=== PATIENT | male | born 1965 | race Caucasian/White ===

== ENCOUNTER 2022-11-06 21:55 | Inpatient (IN) | payer BC, OTHER ==
[~2022-11-06 21:55] MED LIST: Iopamidol 370 76% 100 ML VIAL ONE
[2022-11-06 22:41] LABS: #Lymphocytes 0.5 thou/uL (1.20-3.40); #Monocytes 0.6 thou/uL (0.11-0.59); #Neutrophils 7.6 thou/uL (1.40-6.50); %Basophils 0.2 % (0.0-1.0); %Eosinophils 0.5 % (0.0-10.0); %Lymphocytes 5.4 % (21.0-51.0); %Monocytes 6.7 % (0.0-10.0); %Neutrophils 87.2 % (42.0-75.0); Hemoglobin 11.7 g/dL (14.0-18.0); Mean Corpuscular HGB CONC 32.3 g/dL (32.0-36.0); Mean Corpuscular Hemoglobin 26.4 pg (27.0-31.0); Mean Corpuscular Volume 81.9 fl (78.0-98.0); Mean Platelet Volume 8.7 fL (7.4-10.4); Platelet Count 169 10x3/uL (130-400); Red Blood Cell (RBC) Count 4.41 mill/uL (4.70-6.10); White Blood Cell (WBC) Count 8.8 10x3/uL (4.8-10.8)
[2022-11-06 23:28] LABS: ALT (SGPT) 14 U/L (8-55); AST (SGOT) 31 U/L (5-34); Albumin 4.2 g/dL (3.5-5.0); Alkaline Phosphatase 66 U/L (40-110); Anion Gap 17 mmol/L (10-20); BUN (Urea Nitrogen) 8 mg/dL (8.4-25.7); Calc. Creatinine Clearance 0 mL/min (70-130); Calcium 8.6 mg/dL (7.8-10.44); Carbon Dioxide 21 mmol/L (22-29); Chloride 99 mmol/L (98-107); Estimated GFR 102; Globulin 2.8 g/dL (2.4-3.5); Glucose 97 mg/dL (70-105); Lipase 17 U/L (8-78); Potassium 4.8 mmol/L (3.5-5.1); Sodium 132 mmol/L (136-145)
[2022-11-06 23:32] LABS: SARS-CoV-2 NAA Rapid Test DETECTED (NotDetected)
[2022-11-07] MEDS ORDERED: Aspirin 325 MG TAB ONE (00:33)
[2022-11-07 00:53] LABS: CKMB 1.9 ng/mL (0-6.6)
[2022-11-07] MEDS ORDERED: Furosemide 40 MG/4 ML VIAL ONE ×2 (00:57→15:17)
[2022-11-07] MEDS ORDERED: Ondansetron PF 4 MG/2 ML Vial IVP PRN (02:22)
[2022-11-07] MEDS ORDERED: Acetaminophen 325 MG TAB PO PRN (02:22)
[2022-11-07 02:31] LABS: Bilirubin, Total 1.3 mg/dL (0.2-1.2)
[2022-11-07 04:25] VITALS: BMI 38.7
[2022-11-07 04:50] LABS: #Lymphocytes 0.7 thou/uL (1.20-3.40); #Monocytes 0.5 thou/uL (0.11-0.59); #Neutrophils 4.5 thou/uL (1.40-6.50); %Basophils 0.3 % (0.0-1.0); %Eosinophils 0.2 % (0.0-10.0); %Lymphocytes 12.2 % (21.0-51.0); %Monocytes 8.8 % (0.0-10.0); %Neutrophils 78.4 % (42.0-75.0); Mean Corpuscular HGB CONC 33.4 g/dL (32.0-36.0); Mean Corpuscular Hemoglobin 26.9 pg (27.0-31.0); Mean Corpuscular Volume 80.6 fl (78.0-98.0); Mean Platelet Volume 8.6 fL (7.4-10.4); Platelet Count 161 10x3/uL (130-400); White Blood Cell (WBC) Count 5.8 10x3/uL (4.8-10.8)
[2022-11-07 05:05] LABS: Anion Gap 15 mmol/L (10-20); BUN (Urea Nitrogen) 9 mg/dL (8.4-25.7); Calc. Creatinine Clearance 208 mL/min (70-130); Calcium 8.5 mg/dL (7.8-10.44); Carbon Dioxide 23 mmol/L (22-29); Chloride 102 mmol/L (98-107); Estimated GFR 106; Glucose 84 mg/dL (70-105); Potassium 3.9 mmol/L (3.5-5.1); Sodium 136 mmol/L (136-145)
[2022-11-07 05:13] LABS: Troponin I 0.062 ng/mL (< 0.028)
[2022-11-07] MEDS: Furosemide 20 MG/2 ML VIAL SLOW IVP SCH ×2 (06:28→15:47)
[2022-11-07 08:39] LABS: Troponin I 0.069 ng/mL (< 0.028)
[2022-11-07] MEDS: Ascorbic Acid 500 mg Chewable Tablet PO SCH (08:44)
[2022-11-07] MEDS: Zinc Sulfate 220 MG CAP PO SCH (08:45)
[2022-11-07] MEDS ORDERED: FLU VACC QS2022-23(6MOS UP)/PF 60 MCG/0.5 ML SYRINGE IM ONE (09:00)
[2022-11-07] MEDS ORDERED: Electrolyte Replacement Protocol 1 EACH FS SCH (23:00)
[2022-11-07 23:41] LABS: Anion Gap 13 mmol/L (10-20); BUN (Urea Nitrogen) 13 mg/dL (8.4-25.7); Calc. Creatinine Clearance 192 mL/min (70-130); Carbon Dioxide 27 mmol/L (22-29); Chloride 99 mmol/L (98-107); Estimated GFR 103; Glucose 91 mg/dL (70-105); Magnesium 2.2 mg/dL (1.6-2.6); Phosphorus 3.5 mg/dL (2.3-4.7); Sodium 135 mmol/L (136-145)
[2022-11-08 04:36] LABS: #Eosinphils 0.1 thou/uL (0.0-0.7); #Monocytes 0.8 thou/uL (0.11-0.59); %Basophils 0.5 % (0.0-1.0); %Eosinophils 0.9 % (0.0-10.0); %Lymphocytes 16.5 % (21.0-51.0); %Monocytes 13.4 % (0.0-10.0); %Neutrophils 68.8 % (42.0-75.0); Hemoglobin 11.1 g/dL (14.0-18.0); Mean Corpuscular HGB CONC 32.6 g/dL (32.0-36.0); Mean Corpuscular Hemoglobin 26.7 pg (27.0-31.0); Mean Corpuscular Volume 81.8 fl (78.0-98.0); Mean Platelet Volume 8.4 fL (7.4-10.4); Platelet Count 171 10x3/uL (130-400); RBC Distribution Width 14.8 % (11.5-14.5); Red Blood Cell (RBC) Count 4.17 mill/uL (4.70-6.10); White Blood Cell (WBC) Count 5.8 10x3/uL (4.8-10.8)
[2022-11-08 04:52] LABS: Anion Gap 14 mmol/L (10-20); BUN (Urea Nitrogen) 13 mg/dL (8.4-25.7); Calc. Creatinine Clearance 199 mL/min (70-130); Calcium 8.9 mg/dL (7.8-10.44); Carbon Dioxide 26 mmol/L (22-29); Chloride 99 mmol/L (98-107); Estimated GFR 105; Glucose 91 mg/dL (70-105); Potassium 4.2 mmol/L (3.5-5.1); Sodium 135 mmol/L (136-145)
[2022-11-08] MEDS: Furosemide 40 MG/4 ML VIAL SLOW IVP SCH ×2 (06:19→14:38)
[2022-11-08] MEDS: Lisinopril 5 MG TAB PO SCH (09:11)
[2022-11-08] MEDS: Zinc Sulfate 220 MG CAP PO SCH (09:11)
[2022-11-08] MEDS: Ascorbic Acid 500 mg Chewable Tablet PO SCH (09:11)
[2022-11-08] MEDS: Benzonatate 100 MG CAP PO PRN ×3 (14:39→22:41)
[2022-11-08] MEDS: Melatonin 3 MG TAB PO PRN (22:41)
[2022-11-09 05:04] LABS: #Eosinphils 0.1 thou/uL (0.0-0.7); #Lymphocytes 1.4 thou/uL (1.20-3.40); #Monocytes 0.8 thou/uL (0.11-0.59); #Neutrophils 4.4 thou/uL (1.40-6.50); %Basophils 0.3 % (0.0-1.0); %Eosinophils 1.6 % (0.0-10.0); %Lymphocytes 21.2 % (21.0-51.0); %Monocytes 11.2 % (0.0-10.0); %Neutrophils 65.7 % (42.0-75.0); Hemoglobin 11.8 g/dL (14.0-18.0); Mean Corpuscular HGB CONC 32.4 g/dL (32.0-36.0); Mean Corpuscular Hemoglobin 26.6 pg (27.0-31.0); Mean Corpuscular Volume 81.9 fl (78.0-98.0); Mean Platelet Volume 8.6 fL (7.4-10.4); Platelet Count 180 10x3/uL (130-400); RBC Distribution Width 14.6 % (11.5-14.5); Red Blood Cell (RBC) Count 4.43 mill/uL (4.70-6.10); White Blood Cell (WBC) Count 6.8 10x3/uL (4.8-10.8)
[2022-11-09 05:19] LABS: Anion Gap 15 mmol/L (10-20); BUN (Urea Nitrogen) 14 mg/dL (8.4-25.7); Calc. Creatinine Clearance 222 mL/min (70-130); Calcium 8.8 mg/dL (7.8-10.44); Carbon Dioxide 23 mmol/L (22-29); Chloride 100 mmol/L (98-107); Estimated GFR 109; Glucose 85 mg/dL (70-105); Potassium 3.5 mmol/L (3.5-5.1); Sodium 134 mmol/L (136-145)
[2022-11-09] MEDS: Furosemide 40 MG/4 ML VIAL SLOW IVP SCH ×2 (05:24→14:49)
[2022-11-09] MEDS ORDERED: Potassium Chloride 20 MEQ TAB PO SCH (08:00)
[2022-11-09] MEDS: Lisinopril 5 MG TAB PO SCH (09:13)
[2022-11-09] MEDS: Ascorbic Acid 500 mg Chewable Tablet PO SCH (09:13)
[2022-11-09] MEDS: Zinc Sulfate 220 MG CAP PO SCH (09:14)
[2022-11-09] MEDS: Benzonatate 100 MG CAP PO PRN ×3 (12:28→21:20)
[2022-11-09] MEDS ORDERED: Communication Order-Pharmacy FS SCH (20:45)
[2022-11-09] MEDS ORDERED: Sodium Chloride 0.9% 500 ML IV SCH (20:45)
[2022-11-09] MEDS: Melatonin 3 MG TAB PO PRN (21:20)
[2022-11-10] MEDS: Ascorbic Acid 500 mg Chewable Tablet PO SCH (05:10)
[2022-11-10] MEDS: Zinc Sulfate 220 MG CAP PO SCH (05:10)
[2022-11-10] MEDS: Lisinopril 5 MG TAB PO SCH (05:10)
[2022-11-10] MEDS: Furosemide 40 MG/4 ML VIAL SLOW IVP SCH ×2 (05:11→15:01)
[2022-11-10] MEDS ORDERED: Lidocaine 1% (PF) 30 ML VIAL ONE ×2 (07:04→13:49)
[2022-11-10] MEDS ORDERED: Heparin 10,000 UNITS/ 10 ML VIAL ONE ×2 (07:04→13:49)
[2022-11-10] MEDS ORDERED: Iopamidol 370 76% 100 ML VIAL ONE (08:25)
[2022-11-10] MEDS ORDERED: Iopamidol 370 76% 50 ML VIAL FS ONE (08:25)
[2022-11-10] MEDS ORDERED: FENTANYL 50 MCG/ML 1 ML VIAL ONE (14:20)
[2022-11-10] MEDS ORDERED: Midazolam HCl 2 mg/2 ml Vial ONE (14:21)
[2022-11-10] MEDS: Benzonatate 100 MG CAP PO PRN (20:46)
[2022-11-10] MEDS: Melatonin 3 MG TAB PO PRN (20:46)
[2022-11-11] MEDS: Furosemide 40 MG/4 ML VIAL SLOW IVP SCH (05:06)
[2022-11-11] MEDS: Ascorbic Acid 500 mg Chewable Tablet PO SCH (09:47)
[2022-11-11] MEDS: Zinc Sulfate 220 MG CAP PO SCH (09:48)
[2022-11-11] MEDS: Lisinopril 5 MG TAB PO SCH (10:20)
[2022-11-11 12:13] VITALS: BP 97/53; TEMP 97.7
== END 2022-11-11 14:04 | disposition home or self-care (01) | DRG 286 ==
LOC: ERS 21:55 → 2NO 11-07 00:54
PROVIDERS: ADMIT Internal Medicine; ATTEND Internal Medicine
PROC: 4A023N7 Measurement of Cardiac Sampling and Pressure, Left Heart, Percutaneous Approach (ICD-10-PCS; principal; 2022-11-10)
PROC: B2151ZZ Fluoroscopy of Left Heart using Low Osmolar Contrast (ICD-10-PCS; 2022-11-10)
PROC: B3101ZZ Fluoroscopy of Thoracic Aorta using Low Osmolar Contrast (ICD-10-PCS; 2022-11-10)
PROC: B2111ZZ Fluoroscopy of Multiple Coronary Arteries using Low Osmolar Contrast (ICD-10-PCS; 2022-11-10)
DX: I50.23 Acute on chronic systolic (congestive) heart failure (principal); J12.82 Pneumonia due to coronavirus disease 2019; J96.01 Acute respiratory failure with hypoxia; U07.1 COVID-19; I42.0 Dilated cardiomyopathy; I47.20 Ventricular tachycardia, unspecified; I71.9 Aortic aneurysm of unspecified site, without rupture; F17.210 Nicotine dependence, cigarettes, uncomplicated; E66.01 Morbid (severe) obesity due to excess calories; I08.2 Rheumatic disorders of both aortic and tricuspid valves; Z28.21 Immunization not carried out because of patient refusal; Z82.49 Family history of ischemic heart disease and other diseases of the circulatory system; Z68.36 Body mass index [BMI] 36.0-36.9, adult
CPT/HCPCS: 36415; 71045; 71275; 80048; 80053; 82553; 83690; 83735; 83880; 84100; 84484; 85025; 85379; 93005; 93306; 93454; 93567; 96374; C1769; J1644; J1650; J1940; J2001; J2250; J3010; J7030; Q9967